=== PATIENT | male | born 1990 | race Caucasian/White ===

== ENCOUNTER 2018-03-20 07:25 | Emergency (ER) | payer SELFPAY ==
[~2018-03-20] VITALS: Ht 185.4 cm; Wt 136.4 kg
[2018-03-20 07:29] VITALS: Ht 185.4 cm; Wt 136.4 kg
[2018-03-20 08:10] LABS: BASOPHILS 0.4 % (0-2); EOSINOPHILS 1.1 % (0-7); HEMATOCRIT 42.8 % (42.0-54.0); HEMOGLOBIN 15.1 g/dL (13.5-17.5); LYMPHOCYTES 36.9 % (15-50); MCH 30.4 pg (26.0-34.0); MCHC 35.3 g/dL (31.0-37.0); MCV 86.3 fL (80.0-100.0); MEAN PLATELET VOLUME 10.8 fL (7.4-10.4); MONOCYTES 6.3 % (2-11); NEUTROPHILS 55.3 % (40-80); RBC 4.96 10x6/uL (4.20-6.10); RDW 12.2 % (11.5-14.5); WBC 5.7 10x3/uL (4.8-10.8)
[2018-03-20 08:13] LABS: PLATELET COUNT 201 10x3/uL (130-400)
[2018-03-20 08:36] LABS: ALBUMIN 3.8 g/dL (3.4-5.0); ALKALINE PHOSPHATASE 90 U/L (46-116); ALT (SGPT) 34 U/L (10-68); CALC OSMOLALITY 280 mosm/kg (275-300); CALCIUM 8.9 mg/dL (8.5-10.1); CHLORIDE - SERUM 103 mmol/L (98-107); GLUCOSE 98 mg/dL (74-106); POTASSIUM - SERUM 3.7 mmol/L (3.5-5.1); PROTEIN - SERUM 7.8 g/dL (6.4-8.2); SODIUM 140 mmol/L (136-145); UREA NITROGEN 19 mg/dL (7-18); eGFR NON AFRICAN AMERICAN > 90 mL/min (90-120)
[2018-03-20 09:28] VITALS: BP 121/79
== END 2018-03-20 09:25 | disposition home or self-care (01) ==
LOC: D.ER 07:25
PROVIDERS: Family Medicine
DX: K92.1 Melena (principal)